=== PATIENT | male | born 1960 | race Caucasian/White ===

== ENCOUNTER 2016-04-21 10:14 | Emergency (ER) | payer MEDICARE, OTHER ==
--- NOTE | 2016-04-21 11:08 | ED Physician Documentation ---
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 Was initially painful but not currently. has not seen his PCP for this. 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 he reports he is out of his urostomy bags and wafers for these and presents with a towel on his abdomen that is collecting urine.) - ROS CONST: no problems - PAST HX Past History: hypertension, other (spina bifida, hyperlipidemia, generalized anxiety disorder) Allergies/Adverse Reactions: Allergies Allergy/AdvReac Type Severity Reaction Status Date / Time Sulfa (Sulfonamide Allergy Verified 12/09/15 21:36 Antibiotics) Home Medications: Ambulatory Orders Medication Instructions Recorded Cephalexin [Keflex] 500 mg PO QID #40 capsule 12/09/15 - SOCIAL HX Smoking History: greater than 1 pack/day Alcohol Use: none Drug Use: none - FAMILY HX Family History: No - VITAL SIGNS Vital Signs: Vital Signs Temp Pulse Resp BP Pulse Ox 123/74 12/09/15 22:25 - REVIEWED ASSESSMENTS Nursing Assessment Reviewed: Yes Vitals Reviewed: Yes Progress - Progress Progress: discussed with senior livingin home aide, they report that Marcial purposefully takes off his urostomy bags and throws them away, thus resulting in him going through his supplies rather quickly. Although he presents without a bag on today, surgery center administrator assured me that they have the proper supplies to replace when he returns home after ER visit General Adult Physical Exam - PHYSICAL EXAM GENERAL APPEARANCE: no distress EENT: eye inspection normal, ENT inspection normal, BROOKE NECK: normal inspection RESPIRATORY: no resp distress, chest non-tender CVS: reg rate & rhythm, heart sounds normal ABDOMEN: soft, no distension, non-tender, other (open urostomy site with intermittent leakage of urine from site) SKIN: other (healing wound of what appears to be consistent with shingles, scabbing, no open lesions) NEURO: oriented X3, CN's nml as tested Discharge Clincal Impression: Shingles Qualifiers: Herpes zoster complications: without complications Qualified Code(s): B02.9 - Zoster without complications Additional Instructions: You must not take off your urostomy bags without first checking with the staff at [facility] Home Medications: Ambulatory Orders Cephalexin [Keflex] 500 mg PO QID #40 capsule 12/09/15 Condition: Good Disposition: 01 HOME, SELF-CARE Decision to Admit: NO Decision Time: 11:12
[2016-04-21 16:59] VITALS: BP 130/76
== END 2016-04-21 10:53 | disposition home or self-care (01) ==
LOC: ED 10:14
DX: B02.9 Zoster without complications (principal)
CPT/HCPCS: 99282